=== PATIENT | male | born 1935 | race Caucasian/White ===

== ENCOUNTER 2017-02-25 12:21 | Emergency (ER) | payer OTHER, MEDICAID ==
[~2017-02-25] VITALS: Ht 172.7 cm; Wt 68.5 kg
[~2017-02-25 12:21] MED LIST: ALEN70TA3 PO; CARDIZEM PO; COUMADIN PO; LANOXIN PO; LOVA40TA75 PO
[2017-02-25 12:38] VITALS: BP_SYST 143
[2017-02-25 14:38] VITALS: BP_SYST 128
== END 2017-02-25 14:05 | disposition home or self-care (01) ==
LOC: SED 12:21
DX: S00.01XA Abrasion of scalp, initial encounter (principal); I48.91 Unspecified atrial fibrillation; W18.30XA Fall on same level, unspecified, initial encounter; Y93.41 Activity, dancing; Y92.89 Other specified places as the place of occurrence of the external cause; Y99.8 Other external cause status
CPT/HCPCS: 70450-TC; 99284